=== PATIENT | female | born 1945 | race Caucasian/White ===

== ENCOUNTER 2025-03-23 10:39 | Outpatient (OUT) | payer MEDICARE, OTHER, SELFPAY ==
--- NOTE | 2025-03-23 | XR_ITS ---
The [address] [address] Patient Name: MAGALIE LAYNE MRN: [id number] date: 1945 Sex: F Assigned Patient Location: [facility] Current Patient Location: [facility] Accession/Order Number: [id number] Exam Date: 03/23/2025 11:00 Report Date: 03/23/2025 11:55 At the request of: BLANCO TIAN DO Procedure: XR ankle ALO min 3V CLINICAL DATA: Follow-up right proximal fibular fracture. Bilateral ankle swelling. RIGHT KNEE - 4 views COMPARISON: 02/26/2025 Weightbearing AP, lateral, tunnel and patellar views were obtained. There is osteopenia. There is an oblique fracture at the proximal shaft of the fibula with minimal displacement and no change in alignment. There is some developing callus formation. No other fractures are identified. No dislocation or patellar subluxation is seen. There is mild to moderate narrowing at the lateral tibiofemoral joint compartments. There is tricompartment marginal spurring. A trace amount joint fluid is noted. XR/XR knee RT 3V IMPRESSION: STABLE HEALING PROXIMAL FIBULAR FRACTURE. OSTEOPENIA AND DEGENERATIVE CHANGES. BILATERAL ANKLES - 4 views each COMPARISON: 02/26/2025 Weightbearing AP, lateral, oblique and gravity stress views of the ankles were obtained. There is osteopenia. There is a bony spicule adjacent to the tip of the lateral malleolus on the left AP view. It is uncertain if this could be a recent avulsion injury. No additional acute or healing fractures are identified. The talar domes are intact. Calcaneal spurs are again noted. There is mild diffuse soft tissue swelling. IMPRESSION: EQUIVOCAL AVULSION INJURY AT THE TIP OF THE LEFT LATERAL MALLEOLUS. FOCAL CLINICAL CORRELATION IS SUGGESTED. NO ADDITIONAL ACUTE FINDINGS. Impression dictated by: Betzaida Barton M.D. 03/23/2025 11:55 AM Dictation Location: [place] [address] Electronically authenticated by: [id number] Y Date: 03/23/2025 11:55
--- NOTE | 2025-03-23 | XR_ITS ---
The [address] [address] Patient Name: MAGALIE LAYNE MRN: [id number] date: 1945 Sex: F Assigned Patient Location: [facility] Current Patient Location: [facility] Accession/Order Number: [id number] Exam Date: 03/23/2025 11:00 Report Date: 03/23/2025 11:55 At the request of: BLANCO TIAN DO Procedure: XR ankle ALO min 3V CLINICAL DATA: Follow-up right proximal fibular fracture. Bilateral ankle swelling. RIGHT KNEE - 4 views COMPARISON: 02/26/2025 Weightbearing AP, lateral, tunnel and patellar views were obtained. There is osteopenia. There is an oblique fracture at the proximal shaft of the fibula with minimal displacement and no change in alignment. There is some developing callus formation. No other fractures are identified. No dislocation or patellar subluxation is seen. There is mild to moderate narrowing at the lateral tibiofemoral joint compartments. There is tricompartment marginal spurring. A trace amount joint fluid is noted. XR/XR ankle ALO min 3V IMPRESSION: STABLE HEALING PROXIMAL FIBULAR FRACTURE. OSTEOPENIA AND DEGENERATIVE CHANGES. BILATERAL ANKLES - 4 views each COMPARISON: 02/26/2025 Weightbearing AP, lateral, oblique and gravity stress views of the ankles were obtained. There is osteopenia. There is a bony spicule adjacent to the tip of the lateral malleolus on the left AP view. It is uncertain if this could be a recent avulsion injury. No additional acute or healing fractures are identified. The talar domes are intact. Calcaneal spurs are again noted. There is mild diffuse soft tissue swelling. IMPRESSION: EQUIVOCAL AVULSION INJURY AT THE TIP OF THE LEFT LATERAL MALLEOLUS. FOCAL CLINICAL CORRELATION IS SUGGESTED. NO ADDITIONAL ACUTE FINDINGS. Impression dictated by: Betzaida Barton M.D. 03/23/2025 11:55 AM Dictation Location: [place] [address] Electronically authenticated by: [id number] Y Date: 03/23/2025 11:55
== END 2025-03-23 10:40 | disposition home or self-care (01) ==
LOC: RAD 10:39
PROVIDERS: Visit Provider Orthopaedic Surgery Orthopaedic Trauma
DX: S82.831D Other fracture of upper and lower end of right fibula, subsequent encounter for closed fracture with routine healing (principal); S93.492D Sprain of other ligament of left ankle, subsequent encounter; S93.491D Sprain of other ligament of right ankle, subsequent encounter; M85.88 Other specified disorders of bone density and structure, other site
CPT/HCPCS: 73562; 73610